=== PATIENT | female | born 1960 | race Caucasian/White ===

== ENCOUNTER 2020-08-23 10:23 | Inpatient (IN) ==
[2020-08-23] MEDS ORDERED: Albuterol HFA INHALER 8 gm MDI INH ONE (10:35)
[2020-08-23] MEDS ORDERED: Azithromycin IV 500 MG in NS 0.9% 250 ml 250 ML IVPB ONE (10:35)
[2020-08-23] MEDS ORDERED: cefTRIAXone 1 gm/50 mL NS BAG 1 GM/50 ML BAG IV ONE (10:35)
[2020-08-23] MEDS ORDERED: methylPREDNISolone 125 mg 2 ML VIAL IV ONE (10:40)
[2020-08-23] MEDS ORDERED: NS 0.9% 250 ml 250 ML ONE (10:58)
[2020-08-23] MEDS ORDERED: LACTATED RINGERS IV SCH (11:00)
[2020-08-23] MEDS ORDERED: Azithromycin 500 MG IV - ED ONCE IVPB ONE (11:00)
[2020-08-23 11:24] LABS: Hematocrit 42 % (35-47); Hemoglobin 14.2 g/dL (12.0-16.0); Mean Corpuscular HGB Conc 34 g/dL (31-36); Mean Corpuscular Hemoglobin 32 pg (27-31); Mean Corpuscular Volume 93 fL (80-97); Mean Platelet Volume 6.6 fL (7.4-10.4); Platelet Count 355 10^3/uL (150-450); Red Blood Count 4.51 10^6 /uL (3.70-4.87); Red Cell Distribution Width 12 % (10-15)
[2020-08-23 11:33] LABS: Activated Partial Thrombo Time 27.2 seconds (26.0-38.0); INR 1.14 (0.82-1.09)
[2020-08-23 11:47] LABS: Influenza A Molecular Negative (Negative); Influenza B Molecular Negative (Negative)
[2020-08-23 11:49] LABS: ALT 18 U/L (7-52); AST 22 U/L (13-39); Albumin 3.7 g/dL (3.2-5.2); Alkaline Phosphatase 72 U/L (34-104); Anion Gap 7 mmol/L (2-11); BUN/Creatinine Ratio 29.8 (8-20); Blood Urea Nitrogen 14 mg/dL (6-24); CO2 Carbon Dioxide 36 mmol/L (22-32); Calcium 8.9 mg/dL (8.6-10.3); Chloride 92 mmol/L (101-111); EGFR African American 162.5 (>60); EGFR Non-African American 134.3 (>60); Globulin 3.6 g/dL (2-4); Glucose 103 mg/dL (70-100); Potassium 3.8 mmol/L (3.5-5.0); Sodium 135 mmol/L (135-145); Total Protein 7.3 g/dL (6.4-8.9)
[2020-08-23 11:51] LABS: Troponin I 0.07 ng/mL (<0.03)
[2020-08-23 11:53] LABS: ABS Eosinophils 0.1 10^3/ul (0-0.6); ABS Monocytes 1.9 10^3/ul (0-0.8); Eosinophil % 0.4 %; Lymphocyte % 15.4 %
[2020-08-23] MEDS ORDERED: Albuterol HFA INHALER 8 gm MDI INH PRN (12:36)
[2020-08-23] MEDS ORDERED: Ondansetron 4 mg VIAL 2 MG/ML 2 ml VIAL IV PRN (12:36)
[2020-08-23] MEDS ORDERED: Iohexol 350 (CONTRAST) 500 ML MDV IV ONE (12:37)
[2020-08-23 13:30] LABS: Erythrocyte Sed Rate 41 mm/Hr (0-29)
[2020-08-23] MEDS: Enoxaparin 40 MG/0.4 ML SYR SUBCUT SCH (16:35)
[2020-08-23 17:40] LABS: Urine Appearance Clear; Urine Bilirubin Negative (Negative); Urine Blood 1+ (Negative); Urine Color Yellow; Urine Glucose Negative (Negative); Urine Ketones Trace (Negative); Urine Nitrite Negative (Negative); Urine Protein Negative (Negative); Urine Specific Gravity 1.013 (1.010-1.030); Urine Urobilinogen Negative (Negative)
[2020-08-23 17:46] LABS: Urine Bacteria Absent (Absent); Urine Red Blood Cell 1+(3-5/hpf) (Absent); Urine Squamous Epithelial Cell Present (Absent); Urine White Blood Cell 3+(>20/hpf) (Absent)
[2020-08-24 08:34] LABS: C Reactive Protein 103.21 mg/L (<8.01)
[2020-08-24 09:14] LABS: ABS Lymphocytes 1.8 10^3/ul (1.0-4.8); ABS Monocytes 1.5 10^3/ul (0-0.8); ABS Neutrophils 7.3 10^3/ul (1.5-7.7); Hematocrit 42 % (35-47); Hemoglobin 13.9 g/dL (12.0-16.0); Lymphocyte % 17.2 %; Mean Corpuscular HGB Conc 34 g/dL (31-36); Mean Corpuscular Hemoglobin 31 pg (27-31); Mean Corpuscular Volume 93 fL (80-97); Mean Platelet Volume 6.6 fL (7.4-10.4); Platelet Count 363 10^3/uL (150-450); Red Blood Count 4.45 10^6 /uL (3.70-4.87); Red Cell Distribution Width 12 % (10-15); White Blood Count 10.6 10^3/uL (3.5-10.8)
[2020-08-24 09:33] LABS: BUN/Creatinine Ratio 27.5 (8-20); Calcium 9.1 mg/dL (8.6-10.3); EGFR African American 147.9 (>60); EGFR Non-African American 122.2 (>60); Magnesium 1.9 mg/dL (1.9-2.7); Potassium 4.5 mmol/L (3.5-5.0)
[2020-08-24] MEDS: SPIRIVA Respimat (tiotropium) 2.5 mcg/inh Inhaler INH SCH (10:50)
[2020-08-24] MEDS: cefTRIAXone 1 gm/50 mL NS BAG 1 GM/50 ML BAG IVPB SCH (11:59)
[2020-08-24] MEDS: Enoxaparin 40 MG/0.4 ML SYR SUBCUT SCH (14:16)
[2020-08-25 07:10] LABS: Hematocrit 39 % (35-47); Hemoglobin 13.2 g/dL (12.0-16.0); Mean Corpuscular HGB Conc 34 g/dL (31-36); Mean Corpuscular Hemoglobin 32 pg (27-31); Mean Corpuscular Volume 93 fL (80-97); Mean Platelet Volume 6.9 fL (7.4-10.4); Platelet Count 379 10^3/uL (150-450); Red Cell Distribution Width 12 % (10-15); White Blood Count 13.9 10^3/uL (3.5-10.8)
[2020-08-25 07:26] LABS: BUN/Creatinine Ratio 32.7 (8-20); Calcium 8.4 mg/dL (8.6-10.3); EGFR African American 144.6 (>60); EGFR Non-African American 119.5 (>60); Potassium 3.4 mmol/L (3.5-5.0)
[2020-08-25] MEDS: SPIRIVA Respimat (tiotropium) 2.5 mcg/inh Inhaler INH SCH (08:19)
[2020-08-25 09:31] LABS: ABS Lymphocytes 3.5 10^3/ul (1.0-4.8); ABS Monocytes 1.9 10^3/ul (0-0.8); ABS Neutrophils 8.4 10^3/ul (1.5-7.7); Eosinophil % 0.2 %; Lymphocyte % 25.2 %
[2020-08-25] MEDS: Potassium Chlor 20 meq TAB.ER PO SCH (10:50)
[2020-08-25] MEDS ORDERED: Albuterol/Ipratropium NEB.SOL (2.5/0.5 MG) 3 ML NEB.SOLN INH PRN (11:15)
[2020-08-25] MEDS: cefTRIAXone 1 gm/50 mL NS BAG 1 GM/50 ML BAG IVPB SCH (12:16)
[2020-08-25] MEDS: Albuterol/Ipratropium NEB.SOL (2.5/0.5 MG) 3 ML NEB.SOLN INH SCH ×2 (13:49→19:40)
[2020-08-25] MEDS: Mometasone/Formoter 200/5 MDI INH SCH ×2 (13:49→19:30)
[2020-08-25] MEDS: Enoxaparin 40 MG/0.4 ML SYR SUBCUT SCH (14:24)
[2020-08-26 07:22] LABS: ABS Eosinophils 0.1 10^3/ul (0-0.6); ABS Lymphocytes 3.3 10^3/ul (1.0-4.8); ABS Monocytes 1.4 10^3/ul (0-0.8); ABS Neutrophils 4.2 10^3/ul (1.5-7.7); Eosinophil % 0.8 %; Hematocrit 39 % (35-47); Hemoglobin 13.6 g/dL (12.0-16.0); Lymphocyte % 36.6 %; Mean Corpuscular HGB Conc 35 g/dL (31-36); Mean Corpuscular Hemoglobin 32 pg (27-31); Mean Corpuscular Volume 93 fL (80-97); Mean Platelet Volume 6.5 fL (7.4-10.4); Platelet Count 383 10^3/uL (150-450); Red Blood Count 4.22 10^6 /uL (3.70-4.87); Red Cell Distribution Width 12 % (10-15)
[2020-08-26 07:33] LABS: BUN/Creatinine Ratio 15.7 (8-20); Calcium 8.3 mg/dL (8.6-10.3); EGFR African American 147.9 (>60); EGFR Non-African American 122.2 (>60); Potassium 3.3 mmol/L (3.5-5.0)
[2020-08-26] MEDS: SPIRIVA Respimat (tiotropium) 2.5 mcg/inh Inhaler INH SCH (08:07)
[2020-08-26] MEDS: Mometasone/Formoter 200/5 MDI INH SCH ×2 (08:07→19:27)
[2020-08-26] MEDS ORDERED: Potassium Chlor 20 meq TAB.ER PO ONE (09:45)
[2020-08-26] MEDS: Potassium Chlor 20 meq TAB.ER PO SCH (10:41)
[2020-08-26] MEDS: cefTRIAXone 1 gm/50 mL NS BAG 1 GM/50 ML BAG IVPB SCH (13:49)
[2020-08-26] MEDS: Enoxaparin 40 MG/0.4 ML SYR SUBCUT SCH (13:49)
[2020-08-27 05:57] LABS: Hematocrit 39 % (35-47); Hemoglobin 12.9 g/dL (12.0-16.0); Mean Corpuscular HGB Conc 33 g/dL (31-36); Mean Corpuscular Hemoglobin 31 pg (27-31); Mean Corpuscular Volume 94 fL (80-97); Mean Platelet Volume 6.6 fL (7.4-10.4); Platelet Count 362 10^3/uL (150-450); Red Blood Count 4.14 10^6 /uL (3.70-4.87); Red Cell Distribution Width 12 % (10-15); White Blood Count 11.3 10^3/uL (3.5-10.8)
[2020-08-27 06:12] LABS: ABS Eosinophils 0.1 10^3/ul (0-0.6); ABS Lymphocytes 3.5 10^3/ul (1.0-4.8); ABS Monocytes 1.9 10^3/ul (0-0.8); ABS Neutrophils 5.8 10^3/ul (1.5-7.7); BUN/Creatinine Ratio 24.4 (8-20); Calcium 8.3 mg/dL (8.6-10.3); EGFR African American 170.8 (>60); EGFR Non-African American 141.2 (>60); Eosinophil % 0.5 %; Lymphocyte % 31.1 %; Nucleated Red Blood Cells % 0.1; Potassium 3.6 mmol/L (3.5-5.0)
[2020-08-27] MEDS: Mometasone/Formoter 200/5 MDI INH SCH ×2 (08:15→19:36)
[2020-08-27] MEDS: SPIRIVA Respimat (tiotropium) 2.5 mcg/inh Inhaler INH SCH (08:15)
[2020-08-27] MEDS: Potassium Chlor 20 meq TAB.ER PO SCH (09:49)
[2020-08-27] MEDS: cefTRIAXone 1 gm/50 mL NS BAG 1 GM/50 ML BAG IVPB SCH (12:00)
[2020-08-27] MEDS: Enoxaparin 40 MG/0.4 ML SYR SUBCUT SCH (13:25)
[2020-08-28 06:44] LABS: ABS Eosinophils 0.2 10^3/ul (0-0.6); ABS Monocytes 1.1 10^3/ul (0-0.8); ABS Neutrophils 4.1 10^3/ul (1.5-7.7); Hematocrit 38 % (35-47); Hemoglobin 13.1 g/dL (12.0-16.0); Mean Corpuscular HGB Conc 34 g/dL (31-36); Mean Corpuscular Hemoglobin 32 pg (27-31); Mean Corpuscular Volume 92 fL (80-97); Mean Platelet Volume 6.4 fL (7.4-10.4); Platelet Count 347 10^3/uL (150-450); Red Blood Count 4.15 10^6 /uL (3.70-4.87); Red Cell Distribution Width 12 % (10-15); White Blood Count 8.3 10^3/uL (3.5-10.8)
[2020-08-28 07:02] LABS: BUN/Creatinine Ratio 17.4 (8-20); Calcium 8.4 mg/dL (8.6-10.3); EGFR African American 166.6 (>60); EGFR Non-African American 137.6 (>60); Potassium 3.8 mmol/L (3.5-5.0)
[2020-08-28] MEDS: Mometasone/Formoter 200/5 MDI INH SCH (07:36)
[2020-08-28] MEDS: SPIRIVA Respimat (tiotropium) 2.5 mcg/inh Inhaler INH SCH (07:37)
[2020-08-28] MEDS: cefTRIAXone 1 gm/50 mL NS BAG 1 GM/50 ML BAG IVPB SCH (12:27)
[2020-08-28] MEDS: Enoxaparin 40 MG/0.4 ML SYR SUBCUT SCH (13:50)
[2020-08-28] MEDS ORDERED: Influenza VAC *QUAD* 2020-21* 0.5 ML SYRINGE IM ONE (17:00)
[2020-08-28] MEDS ORDERED: Pneumococcal Vac 23-Polyvalent IM ONE (17:00)
[2020-08-28 17:08] VITALS: BP 134/72
== END 2020-08-28 17:10 | disposition home or self-care (01) | DRG 720 ==
LOC: ED 10:23 → MED 13:52
PROVIDERS: ADMIT Student in an Organized Health Care Education/Training Program; ATTEND Internal Medicine

== ENCOUNTER 2021-07-18 07:06 | Day surgery (SDC) ==
[~2021-07-18 07:06] MED LIST: Buffered Lidocaine 1% SYRIN 1 ml INTRADERM ONE; Lactated Ringers 1000 ml BAG 1,000 ML IV SCH
[2021-07-18] MEDS ORDERED: Lidocaine 2% PF 5 ML VIAL ONE (08:11)
[2021-07-18] MEDS ORDERED: Naloxone 0.4 mg VIAL 0.4 mg/ml 1 ml VIAL IV PRN (08:26)
[2021-07-18] MEDS ORDERED: DiMENhydriNATE IV 50 mg/ml 1 ml VIAL IV PUSH PRN (08:26)
[2021-07-18] MEDS ORDERED: fentaNYL 100 mcg/2 ml 50 MCG/ML VIAL IV PRN (08:26)
[2021-07-18] MEDS ORDERED: Propofol 10 MG/ML 20 ML BTL ONE (08:48)
[2021-07-18 09:57] VITALS: BP 153/79
== END 2021-07-18 10:16 | disposition home or self-care (01) | DRG 254 ==
LOC: OR 07:06 → AA 08:06 → OR 10:16
PROVIDERS: ATTEND Internal Medicine Gastroenterology